=== PATIENT | male | born 1990 | race Caucasian/White ===

== ENCOUNTER 2017-11-22 14:32 | Emergency (ER) | payer OTHER ==
[~2017-11-22] VITALS: Ht 167.6 cm; Wt 129.1 kg
[2017-11-22 15:26] LABS: HEMATOCRIT 42.1 % (38.0-50.0); MCH 28.8 PG (29.0-34.0); MCHC 33.3 G/DL (30.0-36.0); MCV 86.6 FL (86-99); PLATELET COUNT 194 K/uL (156-360); RBC DIS.WIDTH-CV 13.8 % (11.8-14.6); RED BLOOD COUNT 4.86 M/uL (4.00-5.50)
[2017-11-22 15:34] LABS: CHLORIDE 107 mEq/L (99-109); POTASSIUM 3.8 mEq/L (3.7-5.4); SODIUM 139 mEq/L (136-147)
[2017-11-22 15:35] LABS: GLUCOSE 98 mg/dL (70-99)
[2017-11-22 15:39] LABS: CREATININE 0.9 mg/dL (0.6-1.3)
[2017-11-22 15:40] LABS: UREA NITROGEN (BUN) 8 mg/dL (9-23)
[2017-11-22 15:45] LABS: GFR ESTIMATE (CALCULATED) > 59 mL/min/ (58.99-99999)
[2017-11-22 15:46] LABS: TROP-I INTERPRETATION NEGATIVE; TROPONIN-I < 0.01 ng/mL (0.0-0.30)
[2017-11-22 17:56] VITALS: BP 117/68
== END 2017-11-22 18:11 | disposition home or self-care (01) ==
LOC: EDBD 14:32 → EME 14:32
PROVIDERS: Emergency Medicine
DX: R07.9 Chest pain, unspecified (principal); F79 Unspecified intellectual disabilities; Z88.8 Allergy status to other drugs, medicaments and biological substances
CPT/HCPCS: 71046; 80048; 84484; 85027; 93005; 99281; 99284